=== PATIENT | male | born 1975 | race Hispanic/Latino ===

== ENCOUNTER 2017-08-01 20:53 | Emergency (ER) | payer BC, OTHER ==
[2017-08-01 21:07] VITALS: BMI 30.8
[2017-08-01 21:10] VITALS: BP 142/87; PULSE 89; RESP 18; TEMP 98.2
--- NOTE | 2017-08-01 21:11 | ED PDOC ---
Arrival/HPI - General Time Seen by Provider: 08/01/17 21:08 Historian: Patient - History of Present Illness Narrative History of Present Illness (Text): 08/01/17 21:08 42 year old male, no significant pmh, nkda, complaining of rt. anterior shoulder laceration x 1 hour with last tetanus doesn't remember. Pt. stated that he was accidentally hit by the hockey puc abut 1 hour ago, no shoulder or clavicle pain, no numbness or tingling, able to have full range of movement with the rt. shoulder, no palpitation, no other medical or psychological complaints. Past Medical History - Provider Review Nursing Documentation Reviewed: Yes Family/Social History - Physician Review Nursing Documentation Reviewed: Yes Family/Social History: Unknown Family HX Allergies/Home Meds Allergies/Adverse Reactions: Allergies No Known Allergies Allergy (Verified 08/01/17 21:05) Home Medications: Home Meds Medication Instructions Recorded Confirmed diltiaZEM [Diltiazem HCl] 5 mg PO BID 08/01/17 08/01/17 Review of Systems - Review of Systems Constitutional: absent: Fatigue, Fevers Eyes: absent: Vision Changes ENT: absent: Hearing Changes Respiratory: absent: SOB, Cough Cardiovascular: absent: Chest Pain Gastrointestinal: absent: Abdominal Pain, Nausea, Vomiting Musculoskeletal: absent: Arthralgias, Back Pain, Neck Pain, Joint Swelling, Myalgias Skin: Laceration. absent: Rash, Pruritis, Skin Lesions, Abscess, Ulcer, Cellulitis Neurological: absent: Headache, Dizziness Psychiatric: absent: Anxiety, Depression Physical Exam Vital Signs Temp Pulse Resp BP Pulse Ox 08/01/17 21:06 98.2 F 89 18 142/87 98 - Systems Exam Head: Present: Atraumatic, Normocephalic Pupils: Present: PERRL Extroacular Muscles: Present: EOMI Conjunctiva: Present: Normal Ears: Present: NORMAL TM, Normal Canal. No: Erythema Mouth: Present: Moist Mucous Membranes Neck: Present: Normal Range of Motion Respiratory/Chest: Present: Clear to Auscultation, Good Air Exchange. No: Respiratory Distress, Accessory Muscle Use Cardiovascular: Present: Regular Rate and Rhythm, Normal S1, S2. No: Murmurs Abdomen: No: Tenderness, Distention, Peritoneal Signs Back: Present: Normal Inspection Upper Extremity: Present: Normal Inspection, Other (Rt. shoulder/clavicle: no bony tenderness or step off, no swelling, FROM without limitation, sensation intact, motor 5/5, neurovascular intact, +radial pulse, visible approx. 1.25 superficial to intermediate anterior pectoralis major muscle laceration noted near the rt. anterio chest region. ). No: Cyanosis, Edema Lower Extremity: Present: Normal Inspection. No: Edema Neurological: Present: GCS=15, CN II-XII Intact, Speech Normal Skin: Present: Warm, Dry, Normal Color. No: Rashes Psychiatric: Present: Alert, Oriented x 3, Normal Insight, Normal Concentration Medical Decision Making ED Course and Treatment: 08/01/17 21:11 -tdap -There is no bony tenderness or swelling, no emergent indication of xray. -sensation intact, motor 5/5, wound irrigated with normal saline 1000cc, clean with betadine, bacitracin, 1% lidocaine injected with approx. 0.5cc, sterile procedure, 4-0 nylon made 3 sutures, sensation intact, motor 5/5, total procedure time 15 minutes, less than 1cc of blood loss, no complication during the procedure. 08/01/17 21:29 -Discharge home with keflex, motrin, keep the dressing dry and clean for 2 days , sutures can be removed by day 7-10 , avoid strenuous exercise or activity while wound is healing, follow up with your own pmd within 2 days, return to the ER for any new or worsening signs or symptoms. 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 Disposition/Present on Arrival - Present on Arrival Any Indicators Present on Arrival: No History of DVT/PE: No History of Uncontrolled Diabetes: No Urinary Catheter: No History of Decub. Ulcer: No - Disposition Have Diagnosis and Disposition been Completed?: Yes Diagnosis: Skin laceration Disposition: HOME/ ROUTINE Disposition Time: 21:11 Patient Plan: Discharge Condition: GOOD Additional Instructions: -Discharge home with keflex, motrin, keep the dressing dry and clean for 2 days , sutures can be removed by day 7-10 , avoid strenuous exercise or activity while wound is healing, follow up with your own pmd within 2 days, return to the ER for any new or worsening signs or symptoms. Prescriptions: Cephalexin [cephalexin] 500 mg PO TID #21 cap Ibuprofen [Motrin] 600 mg PO TID PRN #21 tab PRN Reason: Other Referrals: [facility] [place] [place] - Follow up with primary Forms: WORK NOTE
[2017-08-01] MEDS ORDERED: TDAP Vaccine 0.5 mL Syr IM ONE (21:28)
[2017-08-01 21:50] VITALS: O2SAT 99
== END 2017-08-01 21:49 | disposition home or self-care (01) ==
LOC: ED 20:53
DX: S41.011A Laceration without foreign body of right shoulder, initial encounter (principal); X58.XXXA Exposure to other specified factors, initial encounter

== ENCOUNTER 2018-06-11 07:16 | Outpatient (CLI) | payer OTHER, BC | END 2018-06-11 07:17 | disposition home or self-care (01) | LOC: LAB 07:16 ==